=== PATIENT | female | born 1965 | race Hispanic/Latino ===

== ENCOUNTER 2023-05-21 15:00 | Emergency (ER) | payer BC ==
[2023-05-21] MEDS ORDERED: KETOROLAC 30MG VIAL (30MG/ML) ONE (16:44)
== END 2023-05-21 17:40 | disposition home or self-care (01) ==
LOC: EDH 15:00
DX: S60.211A Contusion of right wrist, initial encounter (principal); X58.XXXA Exposure to other specified factors, initial encounter; Y93.89 Activity, other specified; Y92.89 Other specified places as the place of occurrence of the external cause; Y99.8 Other external cause status
CPT/HCPCS: 99284; 73110; 29125; 96372; J1885

== ENCOUNTER → 2023-06-20 | Outpatient (CLI) | payer OTHER | END | disposition home or self-care (01) | LOC: RAH 13:37 | PROVIDERS: ATTEND Internal Medicine Critical Care Medicine | DX: S52.591A Other fractures of lower end of right radius, initial encounter for closed fracture (principal); M79.89 Other specified soft tissue disorders; X58.XXXA Exposure to other specified factors, initial encounter; Y93.89 Activity, other specified; Y92.89 Other specified places as the place of occurrence of the external cause; Y99.8 Other external cause status | CPT/HCPCS: 73221 ==